=== PATIENT | female | born 1965 ===

== ENCOUNTER → 2019-11-19 | Outpatient (CLI) | payer BC ==
--- NOTE | 2019-11-19 19:16 | CONS ---
CONSULTATION REASON FOR CONSULTATION: Sleep apnea. HISTORY OF PRESENT ILLNESS: This is a 53-year-old female patient who is has having difficulties with hypersomnia for the past 10 years. She was given a diagnosis of obstructive sleep apnea many years back and since then she has lost around 60-70 pounds post gastric sleeve. Despite all this, she is still snoring and she feels that at times she quits breathing at nighttime. She also grinds and she wears mouth guard and she has ongoing problems with acid reflux, especially at nighttime which at times wakes her up from sleep. Her acid reflux has been a chronic problem which has been complicated by development of esophageal stricture requiring dilatation. In general, the patient goes to bed around 11 p.m., wakes up 7:30 am in the morning and she follows the same schedule on weekends. It seems that she is sleeping only 3-4 hours according to her, and she takes her sometimes more than 30 minutes to fall asleep. Her sleep is fragmented and she wakes up from snoring at other times she wakes up for other reasons such as urination and acid reflux. As mentioned, she has lost around 60 to 70 pounds post gastric sleeve. The patient used to weigh 240. She is currently down to 170. No naps during the day. She sleeps on her side with the head of the bed elevated. No TV in the bedroom. No sleep paralysis. No hallucinations. No cataplexy. PAST MEDICAL HISTORY: 1. Symptomatic acid reflux. 2. Esophageal stricture. 3. Hypothyroidism. 4. History of morbid obesity with gastric sleeve. 5. History of obstructive sleep apnea. 6. History of bruxism/grinding of the teeth. PAST SURGICAL HISTORY: Includes gastric sleeve for obesity, hysterectomy, x2. DRUG ALLERGIES: MORPHINE. OUTPATIENT MEDICATION LIST: Includes levothyroxine, estradiol, vitamin C, vitamin D, vitamin A. SOCIAL HISTORY: Nonsmoker. No history of alcoholism. No history of IV drugs. She is under a lot of stress as the patient has had her mother move to a [facility] recently and this is causing a lot of discomfort mentally for her. FAMILY HISTORY: Mother has dementia. REVIEW OF SYSTEMS: 12-point review of system was done. Positive findings are mentioned in history of present illness. [place] Score is at 20. PHYSICAL EXAMINATION: BP is 128/80, pulse 61, respirations 14, temperature 97.7. Saturation 98% on room air. [place] score is 20. Neck size is 14 inches. Weight is 170. GENERAL APPEARANCE: Calm comfortable. Head is atraumatic, normocephalic. NECK: Supple. No JVD. No goiter or neck masses. LUNGS: Clear to auscultation. HEART: Heart sounds are regular rate and rhythm. Normal S1, S2. No S3, S4. No murmurs. ABDOMEN: Soft. Nontender. No organomegaly. EXTREMITIES: No edema, no cyanosis or clubbing. IMPRESSION: 1. Chronic hypersomnia [place] score of 20, under investigation. Rule out obstructive sleep apnea especially with her previous history. Nevertheless, the patient has undergone gastric sleeve and she has lost considered amount of weight. Residual obstructive sleep apnea is doubtful. Other comorbidities include active acid reflux with symptoms occurring mainly at nighttime, currently taking Tums only without any other suppression treatment. She has also history of chronic bruxism, wearing a bite guard along with symptoms of temporomandibular joint (TMJ) syndrome. 2. Hypothyroidism. PLAN: 1. Recommend nighttime for proton pump inhibitor such as Prilosec 20 mg p.o. daily. 2. Conservative measures such as keeping the head of the bed elevated, eating small portions, avoiding caffeinated beverages or alcoholic beverages late at night time or any other carbonated beverages that will exacerbate the reflux. Eating small portions specially several hours prior to bedtime. At dinner time, she needs to be advanced. 3. Keep on wearing the bite guard. 4. Proceed with a polysomnogram to evaluate this patient for any sleep breathing disorder and treat accordingly. Overall suspicion seems to be low at this point in time. We will continue to follow. Ideally I would like to bring this patient for a full polysomnogram based on other underlying comorbidities. A home sleep study will be obviously suboptimal as it will not indicate the patient's sleep quality. 5. We will continue to follow. MMODL / IJN: [id number] /
== END | disposition home or self-care (01) ==
LOC: SLEEP 13:00
PROVIDERS: ATTEND Nurse Practitioner Family
DX: G47.33 Obstructive sleep apnea (adult) (pediatric) (principal); E03.9 Hypothyroidism, unspecified; Z98.84 Bariatric surgery status
CPT/HCPCS: 99211

== ENCOUNTER → 2021-05-04 | Outpatient (CLI) | payer BC ==
--- NOTE | 2021-05-04 14:34 | P.PN ---
Subjective Progress Note Date: 05/04/21 this is a 55-year-old female patient with known history of obstructive sleep apnea. The patient is coming in for an annual check regarding SKY. The patient was morbidly obese and the patient has undergone previous bariatric surgery with gastric sleeve. Her weight has been fluctuating over the years and the patient currently has gained around 40 pounds and her current body weight is up 184. The patientotherwise is doing well. Her [place] to her hands and fingers and this prevented her ability to put on the CPAP mask. I did a 1 year compliant to check on this patient and the patient has been averaging more than 4 hours of CPAP use per night and an AHI was down to 6.91 on treatment pH has noted at times she was still having some snoring. Her average pressure the liver and vitamin she is around 9.5 cm of water. Other times, she was having increased humidity accumulating in the climate line. Otherwise, she is having episodic heartburn the patient is taking Pepcid. The patient is also having nasal congestion for which she is on Flonase. No angina. No palpitations. No major Sleepiness during the Day and the Treatment Remains Essentially Successful. She Would like to Eliminate the snoring that she is encountering it nighttime while on the CPAP. The patient is using the air[employer] air touch model for her small size.. Noted the patient was also having issues with concentration and daytime fatigue and sleepiness. She was started on Adderall by the primary care physician and currently she is taking a Adderall 20 mg XR 20 mg once a day. She was also started on trazodone 75 mg at bedtime for sleep induction and maintenance. She is taking multiple this medication without any side effects. Objective - Exam BP is 134/86 with a pulse of 84 respirations 16 and weight is 184 and a body mass index is 32.5. Her temperature is 97.9 and his saturations 97% on room air oxygen. Her current [place] is 13. The patient appeared well nourished and normally developed. Vital signs as documented. Head exam is unremarkable. No scleral icterus or corneal arcus noted. Neck is without jugular venous distension, thyromegaly, or carotid bruits. Carotid upstrokes are brisk bilaterally. Lungs are clear to auscultation and percussion. Cardiac exam reveals the PMI to be normally sized and situated. Rhythm is regular. First and second heart sounds normal. No murmurs, rubs or gallops. Abdominal exam reveals normal bowel sounds, no masses, no organomegaly and no aortic enlargement. Extremities are nonedematous and both femoral and pedal pulses are normal.Examination of the skin revealed no evidence of significant rashes, suspicious appearing nevi or other concerning lesions.Neurologically, the patient is awake and alert and the patient does not have any focal neurological deficit. Cranial nerves are essentially intact. Assessment and Plan Plan: 1 obstructive sleep apnea, severe, worse during REM sleep. AHI is at 18 and the patient is currently on APAP at the pressure minimal 5 and a maximum of 10. 2 chronic hypersomnia, improved 3 history of acid reflux, nocturnal currently on Pepcid 4 hypothyroidism 5 PTSD 6 history of ADHD. Plan Recommend continuing the APAP machine and based on history of snoring and some residual obstructive respiratory events, the patient's APAP machine will be adjusted to a minimum pressure of 5 and adnexa pressure of 12 and will delay compliance check within 12 months time and reevaluate her AHI 1 on treatment. Encourage weight loss Continue Adderall for daytime stimulation and symptoms of ADHD Trazodone was also added a dose of 75 mg to promote to maintain sleep Pepcid for nocturnal heartburn Abdomen the sleep hygiene measures We'll continue to follow. Refills on her supplies were given including a refill on her air touch small size. Meanwhile, I took the opportunity to lower the humidity level down to 3 and activated E NH at the level of 3.
== END ==
LOC: SLEEP 14:02
PROVIDERS: ATTEND Internal Medicine Critical Care Medicine
DX: G47.33 Obstructive sleep apnea (adult) (pediatric) (principal); E03.9 Hypothyroidism, unspecified; F43.10 Post-traumatic stress disorder, unspecified; F90.9 Attention-deficit hyperactivity disorder, unspecified type; E66.01 Morbid (severe) obesity due to excess calories; Z99.89 Dependence on other enabling machines and devices; Z68.32 Body mass index [BMI] 32.0-32.9, adult